=== PATIENT | male | born 1995 | race Caucasian/White ===

== ENCOUNTER 2017-02-06 19:56 | Emergency (ER) | payer BC ==
[2017-02-06 20:16] VITALS: BP 138/66
--- NOTE | 2017-02-06 21:46 | UC ---
Throat Pain/Nasal Charlie HPI - HPI Summary HPI Summary: C/O congestion with sinus pain over the last 3 weeks. - History of Current Complaint Chief Complaint: UCRespiratory Stated Complaint: CONGESTION, HEADACHE Time Seen by Provider: 02/06/17 21:40 Hx Obtained From: Patient Onset/Duration: Gradual Onset, Lasting Weeks - 3, Still Present Severity: Moderate Cough: None Associated Signs & Symptoms: Positive: Sinus Discomfort, Nasal Discharge. Negative: Wheezing, Hoarseness Related History: Seasonal Allergies - Allergies/Home Medications Allergies/Adverse Reactions: Allergies Allergy/AdvReac Type Severity Reaction Status Date / Time ALLERGY MED SERUM Allergy Anaphylatic Uncoded 02/06/17 20:12 Shock PMH/Surg Hx/FS Hx/Imm Hx Previously Healthy: Yes - Surgical History Surgical History: None - Family History Known Family History: Negative: Cardiac Disease, Blood Disorder - Social History Occupation: Student Lives: With Family Alcohol Use: Weekly Substance Use Type: None Smoking Status (MU): Former Smoker Have You Smoked in the Last Year: Yes When Did the Patient Quit Smoking/Using Tobacco: 8 MOS - Immunization History Most Recent Influenza Vaccination: not this season Review of Systems Constitutional: Fever ENT: Nasal Discharge, Sinus Congestion, Sinus Pain/Tenderness Respiratory: Cough Is Patient Immunocompromised?: No All Other Systems Reviewed And Are Negative: Yes Physical Exam Triage Information Reviewed: Yes Appearance: No Pain Distress, Ill-Appearing - mild Vital Signs: Initial Vital Signs Temp 98.3 F 02/06/17 20:13 Pulse 69 02/06/17 20:13 Resp 16 02/06/17 20:13 BP 138/66 02/06/17 20:13 Pulse Ox 98 02/06/17 20:13 Vital Signs Reviewed: Yes Eyes: Positive: Conjunctiva Clear ENT: Positive: Pharynx normal, Nasal congestion, TMs normal Neck exam: Normal Respiratory: Positive: Lungs clear, Wheezing - expiratory with cough Cardiovascular Exam: Normal Musculoskeletal Exam: Normal Neurological Exam: Normal Psychological Exam: Normal Skin Exam: Normal Throat Pain/Nasal Course/Dx - Differential Dx/Diagnosis Differential Diagnosis/HQI/PQRI: Pharyngitis, Sinusitis, URI Provider Diagnoses: Allergic rhinitis. Acute sinusitis Discharge - Discharge Plan Condition: Stable Disposition: HOME Prescriptions: Amoxicillin PO (*) [Amoxicillin 875 MG (*)] 875 mg PO BID #20 tab Fluticasone Propionate (Nasal) [Flonase Allergy Relief] 50 mcg NASAL DAILY #1 bottle Montelukast Sodium TAB* [Singulair 10 MG TAB*] 10 mg PO BEDTIME #30 tab Patient Education Materials: Allergic Rhinitis (ED), Sinusitis (ED), Amoxicillin (By mouth), Montelukast (By mouth), Fluticasone (Into the nose) Referrals: Molina Carlton, DO [Primary Care Provider] - Additional Instructions: STOP THE AFRIN!!!! NEILMED SINUS RINSE: CHECK OUT AT [employer] Saline nasal wash helps with mucous, allergies and congestion. It can be used up to twice a day or only as needed. Use lukewarm tap water. It does not have to be sterilized or distilled water. Do 1/3 on each side and snort out of both nostrils. Repeat the process with 1/6 of the bottle on each side with snorting in between to finish the solution in the bottle Use the fluticasone nasal spray 30-45 minutes after the sinus rinse.
[2017-02-06] MEDS ORDERED: Amoxicillin PO (*) 500 MG CAP PO ONE (21:51)
== END 2017-02-06 22:04 | disposition home or self-care (01) ==
LOC: UCCORT 19:56
DX: J30.9 Allergic rhinitis, unspecified (principal); J01.90 Acute sinusitis, unspecified; Z87.891 Personal history of nicotine dependence
CPT/HCPCS: 99212; A9270-GY; G0463

== ENCOUNTER 2017-04-12 21:22 | Emergency (ER) | payer BC ==
[2017-04-12 21:38] VITALS: BP 148/92
--- NOTE | 2017-04-12 21:48 | ED ---
Throat Pain/Nasal Congestion - HPI Summary HPI Summary: 21 yr old male with neck pain. Onset a little over a week ago, and now much worse this evening in the right side of the neck with associated feeling that his neck is swollen on the right. Feels more painful to talk. Pain 9/10. No trouble breathing or swallowing. No change in voice. No SOB. No fever or chills. - History of Current Complaint Chief Complaint: UCGeneralIllness Time Seen by Provider: 04/12/17 21:29 - Allergies/Home Medications Allergies/Adverse Reactions: Allergies Allergy/AdvReac Type Severity Reaction Status Date / Time ALLERGY MED SERUM Allergy Anaphylatic Uncoded 04/12/17 21:38 Shock Home Medications: Home Medications NK [No Home Medications Reported] 04/12/17 [History Confirmed 04/12/17] PMH/Surg Hx/FS Hx/Imm Hx Endocrine/Hematology History: Denies: Hx Diabetes, Hx Thyroid Disease Respiratory History: Denies: Hx Asthma Infectious Disease History: No Infectious Disease History: Denies: Traveled Outside the [place] in Last 30 Days - Family History Known Family History: Negative: Cardiac Disease, Blood Disorder - Social History Alcohol Use: Weekly Substance Use Type: Reports: None Smoking Status (MU): Former Smoker Have You Smoked in the Last Year: Yes Review of Systems Constitutional: Negative Positive: Other - neck pain All Other Systems Reviewed And Are Negative: Yes Physical Exam Triage Information Reviewed: Yes Vital Signs On Initial Exam: Initial Vitals Temp Pulse Resp BP Pulse Ox 98.7 F 85 16 148/92 100 04/12/17 21:32 04/12/17 21:32 04/12/17 21:32 04/12/17 21:32 04/12/17 21:32 Vital Signs Reviewed: Yes Appearance: Positive: Well-Appearing, No Pain Distress Skin: Positive: Warm, Skin Color Reflects Adequate Perfusion Head/Face: Positive: Normal Head/Face Inspection ENT: Positive: Normal ENT inspection, Pharynx normal, TMs normal, Other - no obvious neck mass on palpation or inspection. No bruit on auscultation, no bruise.. Negative: Pharyngeal erythema, Muffled voice, Hoarse voice Neck: Positive: Supple, Nontender, No Lymphadenopathy Respiratory/Lung Sounds: Positive: Clear to Auscultation, Breath Sounds Present Cardiovascular: Positive: RRR. Negative: Murmur Abdomen Description: Positive: Nontender Musculoskeletal: Positive: Strength/ROM Intact Neurological: Positive: Sensory/Motor Intact, Alert, Oriented to Person Place, Time, CN Intact II-III Psychiatric: Positive: Normal AVPU Assessment: Alert - [place] Coma Scale Best Eye Response: 4 - Spontaneous Best Motor Response: 6 - Obeys Commands Best Verbal Response: 5 - Oriented Diagnostics - Vital Signs Vital Signs Temp Pulse Resp BP Pulse Ox 04/12/17 21:32 98.7 F 85 16 148/92 100 - Laboratory Lab Statement: Any lab studies that have been ordered have been reviewed, and results considered in the medical decision making process. EENT Course/Dx - Course Course Of Treatment: 21 yr old male with no obvious physicall findings on exam but complaining of 9/10 pain worse wtih talking and the sensation that his neck has a lump on the right side. He was offered the ambulance to facilitate his transfer, put IV in to treat pain and to the ER faster but he declined. He wants his mother to drive him. - Diagnoses Provider Diagnoses: Neck pain, Hypertension Discharge - Discharge Plan Condition: Good Disposition: HOME Patient Education Materials: Acute Neck Pain (ED), Hypertension (ED) Referrals: Gee Espinal DO [Primary Care Provider] - 1 Day Additional Instructions: You need to go now to the [facility] for further evaluation.
== END 2017-04-12 21:46 | disposition home or self-care (01) ==
LOC: UCCORT 21:22
DX: M54.2 Cervicalgia (principal); I10 Essential (primary) hypertension; Z87.891 Personal history of nicotine dependence
CPT/HCPCS: 99212; G0463

== ENCOUNTER 2017-09-30 17:36 | Emergency (ER) | payer BC ==
[2017-09-30 18:12] VITALS: BP 116/68
--- NOTE | 2017-09-30 18:37 | UC ---
UC General HPI - HPI Summary HPI Summary: Patient presents complaining of having had congestion, sneezing and now has right ear pain. The right ear pain is getting progressively worse. He states that he normally has high pain threshold that this is becoming too uncomfortable. He did have a bout of dizziness earlier but that is since resolved. He does have allergies and is taking his allergy medication but the ear still getting worse. His no associated fever. The discomfort began this morning is getting progressively worse. - History of Current Complaint Chief Complaint: UCEar Stated Complaint: RIGHT EAR COMPLAINT Time Seen by Provider: 09/30/17 18:28 Hx Obtained From: Patient Onset/Duration: Gradual Onset Timing: Constant Pain Intensity: 6 Associated Signs & Symptoms: Negative: Fever, Headache - Allergy/Home Medications Allergies/Adverse Reactions: Allergies Allergy/AdvReac Type Severity Reaction Status Date / Time ALLERGY MED SERUM Allergy Anaphylatic Uncoded 09/30/17 18:13 Shock seasonal Allergy Congestion Uncoded 09/30/17 18:13 Home Medications: Home Medications Cetirizine* [ZyrTEC 10 MG TAB*] 10 mg PO DAILY PRN 09/30/17 [History Confirmed 09/30/17] PMH/Surg Hx/FS Hx/Imm Hx - Additional Past Medical History Additional PMH: Allergies - Surgical History Surgical History: None - Family History Known Family History: Negative: Cardiac Disease, Blood Disorder - Social History Occupation: Employed Full-time Alcohol Use: Weekly Alcohol Amount: 10 weekends Substance Use Type: Marijuana Substance Use Comment - Amount & Last Used: 09/25 Smoking Status (MU): Current Some Day Smoker Have You Smoked in the Last Year: Yes When Did the Patient Quit Smoking/Using Tobacco: 8 MOS - Immunization History Most Recent Influenza Vaccination: not this season Vaccination Up to Date: Yes Review of Systems Constitutional: Negative Skin: Negative Eyes: Negative ENT: Ear Ache, Nasal Discharge, Sinus Congestion Respiratory: Negative Cardiovascular: Negative Gastrointestinal: Negative Genitourinary: Negative Motor: Negative Neurovascular: Negative Musculoskeletal: Negative Neurological: Negative Psychological: Negative Is Patient Immunocompromised?: No All Other Systems Reviewed And Are Negative: Yes Physical Exam Triage Information Reviewed: Yes Appearance: Well-Appearing Vital Signs: Initial Vital Signs Temp 98.7 F 09/30/17 18:03 Pulse 76 09/30/17 18:03 Resp 18 09/30/17 18:03 BP 116/68 09/30/17 18:03 Pulse Ox 100 09/30/17 18:03 Vital Signs Reviewed: Yes Eyes: Positive: Conjunctiva Clear ENT: Positive: Pharynx normal, Nasal congestion, TMs normal - L, R deeply injected and bulging. No mastoid tenderness and the canals are clear area no pre-or postauricular adenopathy.. Negative: Nasal drainage Neck: Positive: Supple, Nontender, No Lymphadenopathy Respiratory: Positive: Lungs clear, Normal breath sounds Cardiovascular: Positive: RRR, No Murmur Abdomen Description: Positive: Nontender, No Organomegaly, Soft Bowel Sounds: Positive: Present Musculoskeletal: Positive: ROM Intact Neurological: Positive: Alert Psychological: Positive: Age Appropriate Behavior Skin Exam: Normal Course/Dx - Differential Dx - Multi-Symptom Provider Diagnoses: R OM Discharge - Sign-Out/Discharge Documenting (check all that apply): Discharge/Admit/Transfer - Discharge Plan Condition: Stable Disposition: HOME Prescriptions: Amoxicillin PO (*) [Amoxicillin 875 MG (*)] 875 mg PO BID #20 tab Patient Education Materials: Ear Infection (ED) Referrals: Gee Espinal DO [Primary Care Provider] - 7 Days - Billing Disposition and Condition Condition: STABLE Disposition: Home
== END 2017-09-30 18:43 | disposition home or self-care (01) ==
LOC: UCCORT 17:36
DX: H66.91 Otitis media, unspecified, right ear (principal)
CPT/HCPCS: 99212; G0463

== ENCOUNTER 2018-01-10 16:35 | Emergency (ER) | payer BC ==
[2018-01-10 17:15] VITALS: BP 115/60
--- NOTE | 2018-01-10 17:37 | UC ---
Skin Complaint HPI - HPI Summary HPI Summary: 22 yo male presents with tick bite to posterior right knee. He tells me that [place] and thinks this is when the tick bit him. He first noticed it earlier today when he had some pain behind his knee. He tried to remove the tick from his leg but could not and now he has increased pain around the area. - History of Current Complaint Chief Complaint: UCSkin Time Seen by Provider: 01/10/18 17:37 Stated Complaint: SKIN COMPLAINT Hx Obtained From: Patient Onset/Duration: Sudden Onset Onset Severity: Moderate Current Severity: Severe Pain Intensity: 8 Pain Scale Used: 0-10 Numeric - Allergy/Home Medications Allergies/Adverse Reactions: Allergies Allergy/AdvReac Type Severity Reaction Status Date / Time ALLERGY MED SERUM Allergy Anaphylatic Uncoded 01/10/18 17:09 Shock seasonal Allergy Congestion Uncoded 01/10/18 17:09 Review of Systems Constitutional: Negative Skin: Other - Tick bite right posterior knee Respiratory: Negative Cardiovascular: Negative Neurovascular: Negative Neurological: Negative Psychological: Negative All Other Systems Reviewed And Are Negative: Yes PMH/Surg Hx/FS Hx/Imm Hx - Additional Past Medical History Additional PMH: None - Surgical History Surgical History: None - Family History Known Family History: Negative: Cardiac Disease, Blood Disorder - Social History Occupation: Employed Full-time Lives: With Family Alcohol Use: Weekly Alcohol Amount: 1 beer/day Substance Use Type: Other Substance Use Comment - Amount & Last Used: occasionally CBD vaporizers Smoking Status (MU): Never Smoked Tobacco Have You Smoked in the Last Year: Yes When Did the Patient Quit Smoking/Using Tobacco: 8 MOS - Immunization History Most Recent Influenza Vaccination: not this season Vaccination Up to Date: Yes Physical Exam - Summary Physical Exam Summary: GENERAL: NAD. WDWN. No pain distress. SKIN: Right posterior knee there is a 7mm diameter of mild erythema and edema with central engorged tick. No streaking, bleeding, or drainage. NECK: Supple. Nontender. No lymphadenopathy. CHEST: No accessory muscle use. Breathing comfortably and in no distress. CV: Pulses intact. Cap refill <2seconds NEURO: Alert. PSYCH: Age appropriate behavior. Triage Information Reviewed: Yes Vital Signs: Initial Vital Signs Temp 97.6 F 01/10/18 17:09 Pulse 76 01/10/18 17:09 Resp 17 01/10/18 17:09 BP 115/60 01/10/18 17:09 Pulse Ox 96 01/10/18 17:09 Vital Signs Reviewed: Yes Course/Dx - Course Course Of Treatment: Tick easily removed with tick tweezers. There is some mild warmth to the area, which could be signs of early cellulitis. Pt admits that he was scratching and digging at the area with tweezers. Will place him on doxy for 1 week to cover for both lyme prophylaxis and possible cellulitis. - Diagnoses Provider Diagnoses: Tick bite with cellulitis right posterior knee Discharge - Sign-Out/Discharge Documenting (check all that apply): Patient Departure All imaging exams completed and their final reports reviewed: No Studies - Discharge Plan Condition: Stable Disposition: HOME Prescriptions: DOXYcycline CAP(*) [DOXYcycline 100MG CAP(*)] 100 mg PO BID #14 cap Patient Education Materials: Lyme Disease (ED), Tick Bite (ED) Referrals: Gee Espinal DO [Primary Care Provider] - Additional Instructions: If you develop a fever, shortness of breath, chest pain, new or worsening symptoms - please call your PCP or go to the ED. TICK BITE: You have been bitten by a tick. Once the tick is removed, these "bites" usually cause no problems. Tick fever, tick paralysis, [place] Spotted fever, and Lyme disease are uncommon -- but you should mention this tick bite to your doctor if you develop unusual symptoms in the next several weeks. If you develop any of the following, please see your physician promptly: (1) Fever, chills, or generalized malaise associated with a headache. (2) A red round area at the site of the bite (or elsewhere) (3) Joint pain, joint swelling or generalized weakness. (4) Redness, swelling, or drainage at the site of the bite. - Billing Disposition and Condition Condition: STABLE Disposition: Home - Attestation Statements Provider Attestation: I was available for consult. This patient was seen by the LISA. The patient was not presented to, seen by, or examined by me. -Carmen
== END 2018-01-10 18:00 | disposition home or self-care (01) ==
LOC: UCCORT 16:35
DX: S80.261A Insect bite (nonvenomous), right knee, initial encounter (principal); L03.115 Cellulitis of right lower limb; J30.2 Other seasonal allergic rhinitis; W57.XXXA Bitten or stung by nonvenomous insect and other nonvenomous arthropods, initial encounter; Y92.9 Unspecified place or not applicable; Z88.8 Allergy status to other drugs, medicaments and biological substances
CPT/HCPCS: 99212; G0463

== ENCOUNTER 2018-05-08 15:36 | Emergency (ER) | payer BC ==
--- NOTE | 2018-05-08 15:47 | UC ---
FLU HPI - HPI Summary HPI Summary: 22 yo male presents with chills since last night. 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 Many of the students have been diagnosed with the flu and pt thinks he may have it. Has not taken anything OTC for his symptoms. Denies fever, sore throat, sinus symptoms, cough , headache, or fatigue. - History of Current Complaint Stated Complaint: CHILLS,COUGH Time Seen by Provider: 05/08/18 15:47 Hx Obtained From: Patient Onset/Duration: Sudden Onset Severity Currently: None - Allergy/Home Medications Allergies/Adverse Reactions: Allergies Allergy/AdvReac Type Severity Reaction Status Date / Time seasonal Allergy Congestion Uncoded 01/10/18 17:09 Home Medications: Home Medications Ibuprofen 400 mg PO DAILY 05/08/18 [History Confirmed 05/08/18] PMH/Surg Hx/FS Hx/Imm Hx - Additional Past Medical History Additional PMH: None - Surgical History Surgical History: None - Family History Known Family History: Negative: Cardiac Disease, Blood Disorder - Social History Alcohol Use: Weekly Alcohol Amount: 1 beer/day Substance Use Type: Other Substance Use Comment - Amount & Last Used: occasionally CBD vaporizers Smoking Status (MU): Never Smoked Tobacco Have You Smoked in the Last Year: Yes When Did the Patient Quit Smoking/Using Tobacco: 8 MOS - Immunization History Most Recent Influenza Vaccination: not this season Vaccination Up to Date: Yes Review of Systems All Other Systems Reviewed And Are Negative: Yes Constitutional: Positive: Chills Skin: Positive: Negative Eyes: Positive: Negative ENT: Positive: Negative Respiratory: Positive: Negative Cardiovascular: Positive: Negative Gastrointestinal: Positive: Negative Neurovascular: Positive: Negative Neurological: Positive: Negative Psychological: Positive: Negative Physical Exam - Summary Physical Exam Summary: GENERAL: NAD. WDWN. No pain distress. SKIN: No rashes, sores, lesions, or open wounds. HEENT: Head: AT/NC Eyes: EOM intact. Conjunctiva clear without inflammation or discharge. Ears: Hearing grossly normal. TMs intact, no bulging, erythema, or edema. Nose: Nasal mucosa pink and moist. NTTP maxillary and frontal sinus. Throat: Posterior oropharynx without exudates, erythema, or tonsillar enlargement. Uvula midline. NECK: Supple. Nontender. No lymphadenopathy. CHEST: CTAB. No r/r/w. No accessory muscle use. Breathing comfortably and in no distress. CV: RRR. Without m/r/g. Pulses intact. Cap refill <2seconds NEURO: Alert. PSYCH: Age appropriate behavior. Triage Information Reviewed: Yes Vital Signs: Vital Signs: Temp Pulse Resp BP Pulse Ox 99.8 F 88 14 131/79 99 05/08/18 15:48 05/08/18 15:48 05/08/18 15:48 05/08/18 15:48 05/08/18 15:48 Laboratory Tests 05/08/18 15:56 Influenza A (Rapid) Positive A Vital Signs Reviewed: Yes Flu Course/Dx - Course Course Of Treatment: POC flu positive. Rx for tamiflu - Differential Dx/Diagnosis Provider Diagnosis: Influenza Discharge - Sign-Out/Discharge Documenting (check all that apply): Patient Departure All imaging exams completed and their final reports reviewed: No Studies - Discharge Plan Condition: Stable Disposition: HOME Prescriptions: Oseltamivir CAP* [Tamiflu CAP*] 75 mg PO BID #10 cap Patient Education Materials: Influenza (DC) Forms: *Work Release Referrals: Gee Espinal DO [Primary Care Provider] - Additional Instructions: If you develop a fever, shortness of breath, chest pain, new or worsening symptoms - please call your PCP or go to the ED. - Billing Disposition and Condition Condition: STABLE Disposition: Home
[2018-05-08 15:50] VITALS: BP 131/79
[2018-05-08 16:01] LABS: Influenza A Molecular POSITIVE (Negative)
== END 2018-05-08 16:17 | disposition home or self-care (01) ==
LOC: UCCORT 15:36
DX: J11.1 Influenza due to unidentified influenza virus with other respiratory manifestations (principal); Z91.09 Other allergy status, other than to drugs and biological substances
CPT/HCPCS: 99212; G0463

== ENCOUNTER 2018-06-21 07:30 | Emergency (ER) | payer BC ==
[2018-06-21 07:50] VITALS: BP 134/80
--- NOTE | 2018-06-21 08:26 | UC ---
Throat Pain/Nasal Charlie HPI - HPI Summary HPI Summary: 22-year-old male comes in with a chief complaint of headache runny nose lightheadedness and upper respiratory tract infection symptoms for 4-5 days. The rhinorrhea is yellow and green. He has a headache is primarily frontal. Feels like his sinuses are clogged up. He has been using [id number] medications which do help some with the symptoms. Today he felt very lightheaded and he did fall down the stairs but denies any injuries. No cough or chest congestion. He's feeling joint aches denies any myalgias. He did have influenza this season and says this does not feel like influenza again. - History of Current Complaint Chief Complaint: UCRespiratory Stated Complaint: FEVER LIGHT HEADED DIZZY Time Seen by Provider: 06/21/18 08:14 Pain Intensity: 7 - Allergies/Home Medications Allergies/Adverse Reactions: Allergies Allergy/AdvReac Type Severity Reaction Status Date / Time seasonal Allergy Congestion Uncoded 06/21/18 07:43 Home Medications: Home Medications Acetaminophen [Acetaminophen Extra Strength] 500 mg PO Q6H PRN 06/21/18 [ History Confirmed 06/21/18] Dm/PE/Acetaminophen/Doxylamine [Daytime-Nighttime Cold-Flu] 2 each PO BID PRN [History Confirmed 06/21/18] PMH/Surg Hx/FS Hx/Imm Hx Previously Healthy: Yes - Surgical History Surgical History: None - Family History Known Family History: Negative: Cardiac Disease, Blood Disorder - Social History Alcohol Use: Occasionally Alcohol Amount: 1 beer/day Substance Use Type: None Substance Use Comment - Amount & Last Used: occasionally CBD vaporizers Smoking Status (MU): Former Smoker Have You Smoked in the Last Year: Yes When Did the Patient Quit Smoking/Using Tobacco: 2016 - Immunization History Most Recent Influenza Vaccination: not this season Vaccination Up to Date: Yes Review of Systems All Other Systems Reviewed And Are Negative: Yes Constitutional: Positive: Chills, Other - SEE HPI Skin: Positive: Negative Eyes: Positive: Negative ENT: Positive: Sore Throat, Nasal Discharge, Sinus Congestion, Sinus Pain/ Tenderness Respiratory: Positive: Negative Cardiovascular: Positive: Negative Gastrointestinal: Positive: Negative Motor: Positive: Negative Neurovascular: Positive: Negative Musculoskeletal: Positive: Arthralgia Neurological: Positive: Headache Psychological: Positive: Negative Is Patient Immunocompromised?: No Physical Exam Triage Information Reviewed: Yes Appearance: No Pain Distress, Well-Nourished, Ill-Appearing - MILD Vital Signs: Initial Vital Signs Temp 98.5 F 06/21/18 07:44 Pulse 91 06/21/18 07:44 Resp 16 06/21/18 07:44 BP 134/80 06/21/18 07:44 Pulse Ox 98 06/21/18 07:44 Vital Signs Reviewed: Yes Eye Exam: Normal Eyes: Positive: Conjunctiva Clear ENT: Positive: Pharyngeal erythema, Nasal congestion, Nasal drainage, TMs normal Neck exam: Normal Neck: Positive: Supple Respiratory: Positive: Lungs clear, Normal breath sounds, No respiratory distress Cardiovascular: Positive: RRR Musculoskeletal Exam: Normal Musculoskeletal: Positive: Strength Intact, ROM Intact Neurological Exam: Normal Neurological: Positive: Alert, Muscle Tone Normal Psychological Exam: Normal Psychological: Positive: Age Appropriate Behavior Skin Exam: Normal Throat Pain/Nasal Course/Dx - Course Course Of Treatment: DISCUSSED VIRAL VERSES BACTERIAL INFECTION AND THE ROLE OF ANTIBIOTICS. THE PATIENT WISHES TO BE ON ANTIBIOTIC AT THIS TIME. - Differential Dx/Diagnosis Provider Diagnosis: Sinusitis Discharge - Sign-Out/Discharge Documenting (check all that apply): Patient Departure All imaging exams completed and their final reports reviewed: No Studies - Discharge Plan Condition: Stable Disposition: HOME Prescriptions: Amoxicillin/Clavulanate TAB* [Augmentin TAB 875*] 875 mg PO BID #20 tab Patient Education Materials: Sinusitis (ED) Forms: *Work Release Referrals: Gee Espinal DO [Primary Care Provider] - Additional Instructions: FOLLOW UP WITH YOUR DOCTOR IF NOT COMPLETELY IMPROVED. GET RECHECKED FOR ANY WORSENING OF YOUR CONDITION OR QUESTIONS OR CONCERNS. - Billing Disposition and Condition Condition: STABLE Disposition: Home
== END 2018-06-21 08:31 | disposition home or self-care (01) ==
LOC: UCCORT 07:30
DX: J32.9 Chronic sinusitis, unspecified (principal); Z91.09 Other allergy status, other than to drugs and biological substances; Z87.891 Personal history of nicotine dependence
CPT/HCPCS: 99212; G0463

== ENCOUNTER 2018-08-17 15:20 | Emergency (ER) | payer BC ==
[2018-08-17 15:42] VITALS: BP 117/70
--- NOTE | 2018-08-17 16:17 | ED ---
Abdominal Pain/Male - HPI Summary HPI Summary: 23 yr old male with the complaint of abdominal pain. Onset of pain was yesterday. He ran 2.5 miles and he has pain located in the 2nd MP area left foot. No STS, no bruise. Pain is moderate, 5/10 and worse with walking. - History of Current Complaint Chief Complaint: UCLowerExtremity Stated Complaint: LEFT GREAT TOE CONCERN Time Seen by Provider: 08/17/18 15:40 Pain Intensity: 0 - Allergies/Home Medications Allergies/Adverse Reactions: Allergies Allergy/AdvReac Type Severity Reaction Status Date / Time seasonal Allergy Congestion Uncoded 08/17/18 15:37 Home Medications: Home Medications NK [No Home Medications Reported] 08/17/18 [History Confirmed 08/17/18] PMH/Surg Hx/FS Hx/Imm Hx Endocrine/Hematology History: Denies: Hx Diabetes, Hx Thyroid Disease Respiratory History: Denies: Hx Asthma GI History: Denies: Hx Ulcer Infectious Disease History: No Infectious Disease History: Denies: Traveled Outside the in Last 30 Days - Family History Known Family History: Positive: None Negative: Cardiac Disease, Blood Disorder - Social History Occupation: Employed Full-time Lives: With Family Alcohol Use: Occasionally Alcohol Amount: 2 DAYS/WEEK Substance Use Type: Reports: None Substance Use Comment - Amount & Last Used: occasionally CBD vaporizers Smoking Status (MU): Former Smoker Type: Cigars Have You Smoked in the Last Year: Yes Review of Systems Constitutional: Negative Positive: Other - left 2nd toe All Other Systems Reviewed And Are Negative: Yes Physical Exam Triage Information Reviewed: Yes Vital Signs On Initial Exam: Initial Vitals Temp Pulse Resp BP Pulse Ox 98 F 67 16 117/70 99 08/17/18 15:38 08/17/18 15:38 08/17/18 15:38 08/17/18 15:38 08/17/18 15:38 Vital Signs Reviewed: Yes Appearance: Positive: Well-Appearing, No Pain Distress Skin: Positive: Warm, Skin Color Reflects Adequate Perfusion Head/Face: Positive: Normal Head/Face Inspection Eyes: Positive: EOMI, JOE ENT: Positive: Normal ENT inspection Neck: Positive: Nontender Respiratory/Lung Sounds: Positive: Other - normal effort Cardiovascular: Positive: Pulses are Symmetrical in both Upper and Lower Extremities Abdomen Description: Negative: Distended Musculoskeletal: Positive: Other - tender to palpation left 2nd MP area. No bruise, no redness. Neurological: Positive: Sensory/Motor Intact, Alert, Oriented to Person Place, Time, CN Intact II-III, Speech Normal Psychiatric: Positive: Normal Diagnostics - Vital Signs Vital Signs Temp Pulse Resp BP Pulse Ox 08/17/18 15:38 98 F 67 16 117/70 99 - Laboratory Lab Statement: Any lab studies that have been ordered have been reviewed, and results considered in the medical decision making process. - Radiology left foot Radiology Interpretation Completed By: Radiologist - NAD Abdominal Pain Male Course/Dx - Course Course Of Treatment: 23 yr old with pain of the left 2nd toe MP area. No redness and xray neg. Lexx shoe, crutches. FU with Ortho referral. - Diagnoses Provider Diagnoses: Sprain of toe, second, left Discharge - Sign-Out/Discharge Documenting (check all that apply): Patient Departure All imaging exams completed and their final reports reviewed: Yes - Discharge Plan Condition: Good Disposition: HOME Patient Education Materials: Arthralgia (ED) Referrals: Gee Espinal DO [Primary Care Provider] - 2 Days Mark Rueda MD [Medical Doctor] - Additional Instructions: It is possible you have a stress fracture of the 2nd toe, 2nd metatarsal left foot. You need to see orthopedics for further evaluation. - Billing Disposition and Condition Condition: GOOD Disposition: Home
== END 2018-08-17 17:03 | disposition home or self-care (01) ==
LOC: UCCORT 15:20
DX: S93.525A Sprain of metatarsophalangeal joint of left lesser toe(s), initial encounter (principal); R10.9 Unspecified abdominal pain; Z87.891 Personal history of nicotine dependence; Z91.09 Other allergy status, other than to drugs and biological substances; X58.XXXA Exposure to other specified factors, initial encounter; Y93.02 Activity, running; Y92.9 Unspecified place or not applicable
CPT/HCPCS: 99213; G0463

== ENCOUNTER 2019-05-27 17:31 | Emergency (ER) | payer BC ==
[2019-05-27 18:07] VITALS: BP 127/81
--- NOTE | 2019-05-27 18:43 | UC ---
Respiratory Complaint HPI - HPI Summary HPI Summary: C/O congestion with maxillary sinus pain, sore throat, cough and body aches x 2 days. Worse since yesterday. - History of Current Complaint Chief Complaint: UCRespiratory Stated Complaint: FEVER Time Seen by Provider: 05/27/19 18:25 Hx Obtained From: Patient Onset/Duration: Sudden Onset, Lasting Days - 2 Timing: Constant Severity Initially: Mild Severity Currently: Moderate Pain Intensity: 7 Character: Cough: Nonproductive Aggravating Factors: Deep Breaths, Recumbent Position Alleviating Factors: Nothing Associated Signs And Symptoms: Positive: Fever, Chills, URI, Nasal Congestion, Hoarseness, Sinus Discomfort - Allergies/Home Medications Allergies/Adverse Reactions: Allergies Allergy/AdvReac Type Severity Reaction Status Date / Time No Known Allergies Allergy Verified 05/27/19 18:04 Home Medications: Home Medications Amoxicillin PO (*) [Amoxicillin 875 MG (*)] 875 mg PO BID #20 tab 05/27/19 [Rx] PMH/Surg Hx/FS Hx/Imm Hx Previously Healthy: Yes - Surgical History Surgical History: None - Family History Known Family History: Positive: Diabetes Negative: Cardiac Disease, Blood Disorder - Social History Occupation: Employed Full-time Lives: Dormitory/Roommates Alcohol Use: Occasionally Alcohol Amount: 3 DAYS/WEEK Substance Use Type: Marijuana Substance Use Comment - Amount & Last Used: occasionally CBD vaporizers Smoking Status (MU): Light Every Day Tobacco Smoker Type: Cigarettes Have You Smoked in the Last Year: Yes When Did the Patient Quit Smoking/Using Tobacco: 2017 - Immunization History Most Recent Influenza Vaccination: not this season Vaccination Up to Date: Yes Review of Systems All Other Systems Reviewed And Are Negative: Yes Constitutional: Positive: Fever, Chills ENT: Positive: Sore Throat, Sinus Pain/Tenderness Respiratory: Positive: Cough Musculoskeletal: Positive: Myalgia Physical Exam Triage Information Reviewed: Yes Appearance: No Pain Distress, Well-Nourished, Ill-Appearing Vital Signs: Initial Vital Signs Temp 99.9 F 05/27/19 18:04 Pulse 105 05/27/19 18:04 Resp 20 05/27/19 18:04 BP 127/81 05/27/19 18:04 Pulse Ox 98 05/27/19 18:04 Vital Signs Reviewed: Yes Eyes: Positive: Conjunctiva Clear ENT: Positive: Pharynx normal, TMs normal Neck exam: Normal Respiratory Exam: Normal Cardiovascular Exam: Normal Musculoskeletal Exam: Normal Neurological Exam: Normal Neurological: Positive: Fatigued Psychological Exam: Normal Skin Exam: Normal Diagnostics - Laboratory Lab Results: Rapid flu Negative Respiratory Course/Dx - Differential Dx/Diagnosis Differential Diagnosis/HQI/PQRI: Asthma, Bronchitis, Lower Resp Infection, Sinusitis Provider Diagnosis: Upper respiratory infection with cough and congestion, Acute bacterial sinusitis Discharge ED - Sign-Out/Discharge Documenting (check all that apply): Patient Departure All imaging exams completed and their final reports reviewed: No Studies - Discharge Plan Condition: Stable Disposition: HOME Prescriptions: Amoxicillin PO (*) [Amoxicillin 875 MG (*)] 875 mg PO BID #20 tab Patient Education Materials: Upper Respiratory Infection (ED), Sinusitis (ED) Forms: *Work Release Referrals: Gee Espinal DO [Primary Care Provider] - Additional Instructions: NASAL SPRAYS AND DROPS: Afrin in the PUMP/ MIST bottle (Get generic 12 hours nasal decongestant spray). Tilt your head down and look at the floor while doing the spray, "nose to toes". Decongestant nasal sprays and drops often give dramatic relief from congestion. They are often recommended for patients with sinus infection to assist with sinus drainage. Persons with high blood pressure should consult the doctor before using these nasal sprays. Afrin and Davy-Synephrine are common [id number] preparations. They should not be used for more than five days, as "rebound" congestion can occur - - the congestion flares as the drug wears off. A way of dealing with this rebound congestion problem is to medicate only one nostril each time, allowing the other nostril to recover from the medicine' s effects. When you no longer need the drug during the day, spray only one nostril each night. This helps you sleep well without severe rebound congestion. Call the doctor if you develop severe headache, palpitations, or chest pain. - Billing Disposition and Condition Condition: STABLE Disposition: Home
[2019-05-27 18:47] LABS: Influenza A Molecular Negative (Negative); Influenza B Molecular Negative (Negative)
[2019-05-27] MEDS ORDERED: Amoxicillin PO (*) 500 MG CAP PO ONE (18:53)
== END 2019-05-27 19:02 | disposition home or self-care (01) ==
LOC: UCCORT 17:31
DX: J06.9 Acute upper respiratory infection, unspecified (principal); J01.90 Acute sinusitis, unspecified; R05 Cough; R09.89 Other specified symptoms and signs involving the circulatory and respiratory systems; B96.89 Other specified bacterial agents as the cause of diseases classified elsewhere; F17.210 Nicotine dependence, cigarettes, uncomplicated; M79.10 Myalgia, unspecified site
CPT/HCPCS: 99212; A9270-GY; G0463